=== PATIENT | female | born 1950 | race African-American/Black ===

== ENCOUNTER 2021-03-31 13:18 | Outpatient (CLI) | payer MEDICARE | END 2021-03-31 13:19 | disposition home or self-care (01) | LOC: CSHMRI 13:18 | PROVIDERS: ATTEND Otolaryngology | DX: H90.A31 Mixed conductive and sensorineural hearing loss, unilateral, right ear with restricted hearing on the contralateral side (principal); H90.5 Unspecified sensorineural hearing loss; H74.91 Unspecified disorder of right middle ear and mastoid | CPT/HCPCS: 70553; 82565 ==